=== PATIENT | male | born 1990 | race Two or more races ===

== ENCOUNTER 2016-11-05 04:09 | Emergency (ER) | payer OTHER ==
[2016-11-05] MEDS ORDERED: Cephalexin CAP* 500 MG PO ONE (04:19)
[2016-11-05 04:22] VITALS: BP 97/79
--- NOTE | 2016-11-05 04:39 | ED ---
Karl Thomas Alfonso, scribed for Ananda Connors MD on 11/05/16 at 0424 . Laceration/Wound HPI - HPI Summary HPI Summary: This patient is a 25 year old male [place] [place] [facility] [place] approximately 2 hours ago. He states the laceration on his left UE was self-inflicted with a scalpel. EMS reports the laceration is 2 inch long and 1/4 inch deep. Bleeding was controlled by towel pressure ASSESSMENT EXPERT. Patient states "I will do it again" and "sometimes I want to ." He rates the pain 5/ 10 in severity. Symptoms aggravated by nothing and alleviated by compression. He reports a throbbing headache. He discloses a past history of cutting himself. - History of Current Complaint Stated Complaint: LAC LEFT ARM Hx Obtained From: Patient, EMS Mechanism of Injury: Other - Scapel Onset/Duration: Sudden Onset, Lasting Hours - 2 hours ASSESSMENT EXPERT, Still Present Aggravating: Nothing Alleviating: Compression Onset Severity: Moderate Current Severity: Moderate Pain Intensity: 5 Pain Scale Used: 0-10 Numeric - Allergy/Home Medications Allergies/Adverse Reactions: Allergies Allergy/AdvReac Type Severity Reaction Status Date / Time No Known Allergies Allergy Verified 11/05/16 04:27 PMH/Surg Hx/FS Hx/Imm Hx Sensory History: Denies: Hx Deafness Opthamlomology History: Denies: Hx Legally Blind Infectious Disease History: Denies: Traveled Outside the [place] in Last 30 Days - Family History Known Family History: Positive: Unknown - Due to immigrant and prisioner status - Social History Occupation: Unemployed Alcohol Use: None Hx Substance Use: Yes Substance Use Type: Reports: Marijuana Hx Tobacco Use: No Review of Systems Negative: Fever Positive: Other - Left UE laceration Positive: Headache - Throbbing Psychological: Other - Positive SI All Other Systems Reviewed And Are Negative: Yes Physical Exam Triage Information Reviewed: Yes Vital Signs On Initial Exam: Initial Vitals Temp Pulse Resp BP Pulse Ox 98.6 F 110 16 97/79 100 11/05/16 04:10 11/05/16 04:10 11/05/16 04:10 11/05/16 04:10 11/05/16 04:10 Vital Signs Reviewed: Yes Appearance: Positive: Well-Appearing, No Pain Distress Skin: Positive: Warm, Other - i cm lac rue Head/Face: Positive: Normal Head/Face Inspection Eyes: Positive: FAVIO ENT: Positive: Hearing grossly normal Neck: Positive: Supple Respiratory/Lung Sounds: Positive: Breath Sounds Present Cardiovascular: Positive: RRR Musculoskeletal: Positive: Other - 1 cm lac rue Neurological: Positive: Sensory/Motor Intact, Alert, Oriented to Person Place, Time, NV Bundle Intact Distally Psychiatric: Positive: Affect/Mood Appropriate Diagnostics - Vital Signs Vital Signs Temp Pulse Resp BP Pulse Ox 11/05/16 04:15 98.6 F 110 16 97/79 100 11/05/16 04:10 98.6 F 110 16 97/79 100 - Laboratory Lab Statement: Any lab studies that have been ordered have been reviewed, and results considered in the medical decision making process. Re-Evaluation - Re-Evaluation First Eval Comment: pt refusing stitches, steri strips [laced, pt on abx Laceration Repair Course/Dx - Clinical Impression Provider Diagnoses: Suicide attempt, Laceration of left upper extremity Discharge - Discharge Plan Condition: Stable Disposition: LAW ENFORCEMENT/COURT Prescriptions: Cephalexin CAP* [Keflex 250 CAP*] 250 mg PO QID #20 cap Patient Education Materials: Suicide Prevention for Adults (ED), Acute Wound Care (ED) [place] [facility] [place] [facility] [place]] - 3 Days The documentation as recorded by the Karl reardon Alfonso accurately reflects the service I personally performed and the decisions made by me, Ananda Connors MD.
== END 2016-11-05 04:51 ==
LOC: ED 04:09
DX: T14.91 Suicide attempt (principal); S41.112A Laceration without foreign body of left upper arm, initial encounter; R51 Headache; X78.1XXA Intentional self-harm by knife, initial encounter; Y93.9 Activity, unspecified; Y92.9 Unspecified place or not applicable; Y99.9 Unspecified external cause status
CPT/HCPCS: 99282